=== PATIENT | male | born 1985 | race African-American/Black ===

== ENCOUNTER 2017-01-13 01:26 | Inpatient (IN) | payer SELFPAY ==
[2017-01-13] VITALS (10 sets, daily range): BP systolic 99–134; BP diastolic 45–70
[~2017-01-13] VITALS: Ht 180.3 cm; Wt 68.9 kg
[2017-01-13] MEDS ORDERED: ONDANSETRON PF 4 MG/2 ML VIAL. IV PRN ×3 (04:15→11:30)
[2017-01-13] MEDS: HYDROmorphone 2 MG/ML VIAL IVP PRN ×4 (04:23→17:37)
[2017-01-13] MEDS: IV NORMAL SALINE 1000ML BAG 1,000 ML IV SCH ×3 (04:24→20:15)
[2017-01-13] MEDS ORDERED: ACETAMINOPHEN 500 MG TABLET PO PRN (07:45)
--- NOTE | 2017-01-13 08:15 | PDOC2 ---
RONN TURNER ASPHALT LAYER 01/13/17 0815: CONSULT Date of Consult Date of Consult DATE: 01/13/17 TIME: 08:10 Reason for Consult Reason for Consult: appendicitis Referring Physician Referring Physician: CHELLY NARANJO Identification/Chief Complaint Chief Complaint abdominal pain Problems: Source Source: Chart review, Patient History of Present Illness Reason for Visit: 4 day history of RLQ pain. Aggravated by movement, no alleviating factors. Low appetite last few days. Pain is constant, sharp. Never had similar symptoms. + constipation. + n/v Past Medical History Past Medical History denies any pertinent history Past Surgical History Past Surgical History: No pertinent history Family History Family History: Other (noncontributory to current illness ) Social History <1 pack per day ALCOHOL: occassional Drugs: Marijuana Lives: Alone Current Medications Current Medications Current Medications Hydromorphone HCl (Dilaudid) 1 mg PRN Q2HR PRN IVP SEVERE PAIN Last administered on 01/13/17 04:23; Start 01/13/17 at 04:15 Morphine Sulfate 2 mg PRN Q2HR PRN IV MODERATE PAIN; Start 01/13/17 at 04:15 Ondansetron HCl (Zofran) 4 mg PRN Q6HRS PRN IV NAUSEA/VOMITING Last administered on 01/13/17 04:23; Start 01/13/17 at 04:15 Sodium Chloride 1,000 ml @ 125 mls/hr Q8H IV Last administered on 01/13/17 04: 24; Start 01/13/17 at 04:15 Acetaminophen (Tylenol) 500 mg PRN Q6HRS PRN PO MILD PAIN / TEMP; Start at 07:45 Active Scripts Active No Active Prescriptions or Reported Medications Allergies Allergies: Coded Allergies: No Known Drug Allergies (Unverified , 01/13/17) ROS General: YES: Chills, No: Other (fevers) PSYCHOLOGICAL ROS: No: Anxiety, Depression Eyes: No Double vision HEENT: No: Heacaches, Sore Throat Hematological and Lymphatic: No: Bleeding Problems, Blood Clots Respiratory: No: Cough, Shortness of breath Cardiovascular: No Chest Pain, No Palpitations Gastrointestinal: Yes Other (see hpi) Genitourinary: No Dysuria, No Hematuria Musculoskeletal: No Joint Pain, No Muscle Pain Neurological: No Impaired Coord/balance, No Numbness/Tingling Skin: No Pruritus, No Rash Physical Exam General: Alert, Oriented X3, Cooperative, Other (appears acutely uncomfortable ) HEENT: Atraumatic, PERRLA Lungs: Clear to auscultation, Normal air movement Heart: Regular rate, Normal S1, Normal S2, No murmurs Abdomen: Soft, Other (moderate RLQ TTP with guarding ) Extremities: No clubbing, No cyanosis Skin: No rashes, No breakdown Neuro: Normal gait, Normal speech Psych/Mental Status: Mental status NL, Mood NL MUSCULOSKELETAL: No deformity, No swelling Vitals VITALS Vital Signs Date Time Temp Pulse Resp B/P (MAP) Pulse Ox O2 Delivery O2 Flow Rate FiO2 01/13/17 07:00 98.1 51 20 116/63 (80) 99 Room Air 98.[address] report from [facility] Assessment/Plan Assessment/Plan acute appendicitis, peritoneal findings on exam tobaccoism, drug use(marijuana use) plan lap appy today MANDI BOONE MD 01/13/17 0922: CONSULT Allergies Allergies: Coded Allergies: No Known Drug Allergies (Unverified , 01/13/17) Assessment/Plan Assessment/Plan pt seen, interviewed, and examined agree with above Explained risks of l/s appendectomy including but not limited to bleeding, infection, injury to bowel, bladder or the possibility of needing an "open" procedure. Also the chance this is NOT an acute appendicitis (i.e mesenteric adenitis, gastroenteritis). He will proceed. Will follow with you. Thanks for consult RONN TURNER APRN Jan 13, 2017 08:15 MANDI BOONE MD Jan 13, 2017 09:22
[2017-01-13] MEDS ORDERED: DESFLURANE 61 TO 120 MINUTES IH ONE (09:09)
[2017-01-13] MEDS ORDERED: DEXAMETHASONE SOD PHOS 20 MG/5 ML VIAL. ONE (09:09)
[2017-01-13] MEDS ORDERED: PROPOFOL 20 ML IV ONE (09:09)
[2017-01-13] MEDS ORDERED: MIDAZOLAM HCL/PF 2 MG/2 ML VIAL. ONE (09:09)
[2017-01-13] MEDS ORDERED: ONDANSETRON PF 4 MG/2 ML VIAL. ONE (09:09)
[2017-01-13] MEDS ORDERED: LIDOCAINE 2% PF Vial for OR 5 ML VIAL. ONE (09:09)
[2017-01-13] MEDS ORDERED: ROCURONIUM 50 MG/5 ML VIAL. ONE (09:10)
[2017-01-13] MEDS ORDERED: fentaNYL PF VIAL 100 MCG/2 ML VIAL ONE ×2 (09:10→10:51)
[2017-01-13] MEDS ORDERED: BUPIVACAINE-EPI 0.5%-1:200000 50 ML VIAL. ONE (09:49)
[2017-01-13] MEDS ORDERED: PIPERACILLIN/TAZOBACTAM 3.375 GM in IV NORMAL SALINE 50ML 50 ML IV ONE (10:00)
--- NOTE | 2017-01-13 10:11 | PDOC1 ---
History and Physical Date of Admission Date of Admission DATE: 01/13/17 TIME: 10:06 Identification/Chief Complaint Chief Complaint ABdominal pain Problems: Source Source: Caregiver, Chart review History of Present Illness History of Present Illness Pt out having appy\ CHart reveiwed, per note: 4 day history of RLQ pain. Aggravated by movement, no alleviating factors. Low appetite last few days. Pain is constant, sharp. Never had similar symptoms. + constipation. + n/v Past Medical History Cardiovascular: No pertinent hx Pulmonary: No pertinent hx GI: No pertinent hx Heme/Onc: No pertinent hx Hepatobiliary: No pertinent hx Psych: No pertinent hx Rheumatologic: No pertinent hx Infectious disease: No pertinent hx ENT: No pertinent hx Renal/: No pertinent hx Endocrine: No pertinent hx Dermatology: No pertinent hx Past Surgical History Past Surgical History: No pertinent history Family History Family History: Other (noncontributory to current illness ) Social History Smoke: No ALCOHOL: none Drugs: Marijuana Current Medications Current Medications Current Medications Hydromorphone HCl (Dilaudid) 1 mg PRN Q2HR PRN IVP SEVERE PAIN Last administered on 01/13/17 08:15; Start 01/13/17 at 04:15 Morphine Sulfate 2 mg PRN Q2HR PRN IV MODERATE PAIN; Start 01/13/17 at 04:15 Ondansetron HCl (Zofran) 4 mg PRN Q6HRS PRN IV NAUSEA/VOMITING Last administered on 01/13/17 04:23; Start 01/13/17 at 04:15 Sodium Chloride 1,000 ml @ 125 mls/hr Q8H IV Last administered on 01/13/17 04: 24; Start 01/13/17 at 04:15 Acetaminophen (Tylenol) 500 mg PRN Q6HRS PRN PO MILD PAIN / TEMP; Start at 07:45 Dexamethasone Sodium Phosphate (Decadron) 20 mg STK-MED ONCE .ROUTE ; Start 01/13 at 09:09; Stop 01/13/17 at 09:10; Status DC Ondansetron HCl (Zofran) 4 mg STK-MED ONCE .ROUTE ; Start 01/13/17 at 09:09; Stop 01/13/17 at 09:10; Status DC Propofol 20 ml @ As Directed STK-MED ONCE IV ; Start 01/13/17 at 09:09; Stop 01/13 at 09:10; Status DC Lidocaine HCl (Lidocaine Pf 2% Vial) 5 ml STK-MED ONCE .ROUTE ; Start 01/13/17 at 09:09; Stop 01/13/17 at 09:10; Status DC Desflurane (Suprane) 60 ml STK-MED ONCE IH ; Start 01/13/17 at 09:09; Stop at 09:10; Status DC Midazolam HCl (Versed) 2 mg STK-MED ONCE .ROUTE ; Start 01/13/17 at 09:09; Stop 01/13/17 at 09:10; Status DC Fentanyl Citrate (Fentanyl 2ml Vial) 100 mcg STK-MED ONCE .ROUTE ; Start at 09:10; Stop 01/13/17 at 09:11; Status DC Rocuronium [place] (Zemuron) 50 mg STK-MED ONCE .ROUTE ; Start 01/13/17 at 09:10 ; Stop 01/13/17 at 09:11; Status DC Piperacillin Sod/ Tazobactam Sod 3.375 gm/Sodium Chloride 50 ml @ 100 mls/hr 1X ONCE IV ; Start 01/13/17 at 10:00; Stop 01/13/17 at 10:29 Bupivacaine HCl/ Epinephrine Bitart (Marcaine-Epi 0.5%-[id number]) 50 ml STK-MED ONCE .ROUTE Last administered on 01/13/17t 09:53; Start 01/13/17 at 09:49; Stop 01/13/17 at 09:50; Status DC Active Scripts Active No Active Prescriptions or Reported Medications Allergies Allergies: Coded Allergies: No Known Drug Allergies (Unverified , 01/13/17) ROS Review of System out having sx Vitals Vitals Vital Signs Date Time Temp Pulse Resp B/P (MAP) Pulse Ox O2 Delivery O2 Flow Rate FiO2 01/13/17 09:09 98.1 52 18 119/66 98 Room Air 98.1 VTE Prophylaxis Ordered VTE Prophylaxis Devices: Yes VTE Pharmacological Prophylaxi: Yes Assessment/Plan Assessment/Plan 1. Acute appy 2. marijuana use PLAN; will see pt later when gets back from OR SHERRY BELTRAN MD Jan 13, 2017 10:11
[2017-01-13] MEDS ORDERED: NEOSTIGMINE METHYLSULFATE 5 MG/5 ML SYRINGE. ONE (10:50)
[2017-01-13] MEDS ORDERED: GLYCOPYRROLATE 1 MG/5 ML VIAL. ONE (10:50)
[2017-01-13] MEDS ORDERED: SEVOFLURANE 61 TO 120 MINUTES. IH ONE (11:10)
[2017-01-13] MEDS ORDERED: diphenhydrAMINE 50 MG/ML VIAL IV PRN (11:15)
[2017-01-13] MEDS ORDERED: HYDROmorphone 2 MG/ML VIAL IV PRN ×2 (11:15→11:30)
[2017-01-13] MEDS ORDERED: diphenhydrAMINE HCL 25 MG CAPSULE PO PRN (11:15)
[2017-01-13] MEDS ORDERED: oxyCODONE/APAP 5/325 1 TAB TABLET PO PRN (11:15)
[2017-01-13] MEDS ORDERED: DEXTROSE 50% 25 GM / 50ML DISP.SYRIN. IV PRN (11:15)
[2017-01-13] MEDS ORDERED: 0.9 % SODIUM CHLORIDE 10 ML DISP.SYRIN. IV PRN (11:15)
--- NOTE | 2017-01-13 11:21 | PDOC ---
BRIEF OPERATIVE NOTE Date: Jan 13, 2017 Pre-Op Diagnosis acute appendicitis Post-Op Diagnosis same, with perforation Procedure Performed l/s appendectomy Surgeon Tyler Anesthesia Type: General Blood Loss 25cc IV Fluid 900cc Urine Output 210cc Specimens Obtained appendix Findings perforation at mid-appendix with localized abscess Complications none MANDI BOONE MD Jan 13, 2017 11:21
[2017-01-13] MEDS ORDERED: IV RINGERS,LACTATED 1000ML 1,000 ML IV SCH (11:26)
[2017-01-13] MEDS ORDERED: fentaNYL PF VIAL 100 MCG/2 ML VIAL IV PRN (11:30)
[2017-01-13] MEDS ORDERED: PROCHLORPERAZINE 10 MG/2 ML VIAL. IV PRN (11:30)
[2017-01-13] MEDS ORDERED: LIDOCAINE 1% 1 ML SYRINGE. ID PRN (11:30)
[2017-01-13] MEDS: fentaNYL PF VIAL 100 MCG/2 ML VIAL IV PRN ×2 (11:50→12:09)
[2017-01-13] MEDS: ENOXAPARIN 40 MG/0.4 ML SYRINGE. SQ SCH (12:00)
[2017-01-13] MEDS: MORPHINE SULFATE 2 MG/ML DISP.SYRIN. IV PRN ×3 (12:15→23:25)
[2017-01-13] MEDS: POTASSIUM CL 20MEQ-0.45% NACL 1,000 ML IV SCH ×2 (13:45→21:15)
--- NOTE | 2017-01-13 15:25 | ACF ---
Admission Forms Criteria ABDOMINAL PAIN Clinical Indications for Admission to Inpatient Care (Place 'X' for any and all applicable criteria): Admission is indicated for ANY ONE of the following(1)(2)(3)(4)(5): [X ]I. Inpatient admission required rather than observation care (Also use Abdominal Pain: Observation Care, as appropriate) because of ANY ONE of the following: [ ]a) Severe pain requiring acute inpatient management [X ]b) Identification of etiology/finding that requires inpatient care (eg, aortic dissection, free air) [ ]c) Absent bowel sounds with complete ileus(6) [ ]d) Suspected toxic megacolon [ ]e) Severe electrolyte abnormalities requiring inpatient care [ ]f) High fever or infection requiring inpatient admission as indicated by ANY ONE of following(7)(8): [ ] i) Appropriate outpatient or observational care antimicrobial treatment unavailable, not effective, or not feasible [ ] ii) Documented bacteremia [ ] iii) Temperature > 104.9 degrees F (oral) [ ] iv) T >103.1 F (oral) or < 96.8 F(rectal) that does not respond to all emergency treatment measures [ ]g) Signs of intestinal obstruction [B] [ ]h) Hemodynamic instability [ ]i) IV fluid to replace significant ongoing losses (greater than 3 L/m2 per day) (12)(13) [ ]j) Percutaneous or open drainage (eg, abscess, biliary tract ) procedures [ ]k) Parenteral nutrition regimen that must be implemented on inpatient basis [ ]l) Other condition,treatment or monitoring requiring inpatient admission. [ ]II. Peritoneal signs present [X ]III. Surgery needed that cannot be performed on an ambulatory basis. [ ]IV. Evaluation requires patient to not eat or drink for extended period ( eg, more than 24 hours). [ ]V. Contraindications and/or Inappropriate clinical situations for Observational Care in patients with abdominal pain, when ANY ONE of the following is required: [ ]a) Thorough evaluation is required to prevent catastrophic events due to delays in diagnosing (e.g.Mesenteric ischemia) 1,3 [ ]b) Patient with severe pathology or with chronic symptoms unlikely to improve in the ED stay (3) [ ]. General contraindications and/or Inappropriate clinical situations for Observational Care in patients with abdominal pain, when ANY ONE of the following is required: [ ]a) Prediction of prolongation of LOS based on ANY ONE of the following may be considered as a contraindication for observational care 2, 3, 4, 5, 6, 7, 8, 9, 10, 11 [ ]i) Age > 65 yrs. [ ]ii) Patient arriving by ambulance [ ]iii) Patient with high acuity [ ]iv) Patient requiring vital sign monitoring [ ]v) Patient on IV medication [ ]b) Systolic blood pressures 180mmHg 3,12 [ ]c) Patient with altered mental status including delirium and other alteration of consciousness, (3) [ ]d) Patient whose discharge disposition will be to a nursing home home or rehabilitation home should not be managed in Emergency Department Observation Unit. CMS rule requires 3 days hospital stay before such placement.3,13 [ ]e) Patient with failure to thrive due to broad array of etiologies 3,16,17 [ ]f) Inability to ambulate 3,14 Extended stay beyond goal length of stay may be needed for(2)(3): [ ]a) Persistent abdominal pain with suspected intra-abdominal process [ ]b) Diagnosed condition requiring continued stay (e.g., pancreatitis, complicated diverticulitis) [ ]c) Surgery (e.g., colectomy) The original [email or web address] content created by [employer] has been revised. The portions of the content which have been revised are identified through the use of italic text or in bold, and [facility] has neither reviewed nor approved the modified material.All other unmodified content is copyright [employer] [email or web address]. Please see references footnoted in the original [email or web address] edition 2016 Admission Criteria Met?: Yes SAURABH KRAUSE Jan 13, 2017 15:25
[2017-01-13] MEDS: oxyCODONE/APAP 5/325 1 TAB TABLET PO PRN (20:09)
[2017-01-14] MEDS: oxyCODONE/APAP 5/325 1 TAB TABLET PO PRN ×4 (00:35→14:18)
[2017-01-14 02:55] VITALS: BP 106/64
[2017-01-14] MEDS: IV NORMAL SALINE 1000ML BAG 1,000 ML IV SCH (04:15)
[2017-01-14 07:00] VITALS: BP 113/57
[2017-01-14] MEDS: MORPHINE SULFATE 2 MG/ML DISP.SYRIN. IV PRN ×2 (08:26→12:19)
[2017-01-14 09:37] LABS: BASO % 0 % (0-3); EOS % 0 % (0-3); HEMATOCRIT 40.7 % (39.0-53.0); HEMOGLOBIN 13.5 g/dL (13.0-17.5); LYMPH # 1.4 x10^3/uL (1.0-4.8); LYMPH % 9 % (24-48); MEAN CORPUSCULAR HEMOGLOBIN 32 pg (25-35); MEAN CORPUSCULAR HGB CONC 33 g/dL (31-37); MEAN CORPUSCULAR VOLUME 96 fL (79-100); MONO % 5 % (0-9); NEUT % 85 % (31-73); PLATELET COUNT 203 x10^3/uL (140-400); RED BLOOD COUNT 4.24 x10^6/uL (4.30-5.70); RED CELL DISTRIBUTION WIDTH 13.8 % (11.5-14.5); WHITE BLOOD COUNT 14.9 x10^3/uL (4.0-11.0)
[2017-01-14 09:58] LABS: CALCIUM 8.6 mg/dL (8.5-10.1); CREATININE 0.9 mg/dL (0.7-1.3); GFR 119.9; POTASSIUM 3.7 mmol/L (3.5-5.1)
[2017-01-14 10:37] LABS: PLT ESTIMATE ADEQUATE (ADEQUATE)
[2017-01-14 11:00] VITALS: BP 119/70
--- NOTE | 2017-01-14 11:27 | PDOC ---
PROGRESS NOTES Chief Complaint Chief Complaint 1. Ruptured appendictis s./p appY (7.6) POD # 1 2. SIRS POA , no sepsis sec to above History of Present Illness History of Present Illness Still pain , diff kind of pain RAtes 7./10 Lap sites inspected, dressing dry Ate reg diet though this breakfast NO fevers \ RPt WBC post op is 14 NOt getting up around bec of pain PLAN: ON IV fenatnyl, dilaudid and pO pain meds DOwngrade to GI soft for now COnt IV antibiotic Recheck CBC [place] IS Order pOT/OT so he is forced to get up Vitals Vitals Vital Signs Date Time Temp Pulse Resp B/P (MAP) Pulse Ox O2 Delivery O2 Flow Rate FiO2 01/14/17 11:18 Room Air 01/14/17 07:00 98.1 73 18 113/57 (75) 94 98.1 01/13/17 12:15 10.0 Physical Exam General: Alert, Oriented X3, Cooperative, Other (appears acutely uncomfortable ) Heart: Regular rate, Normal S1, Normal S2, No murmurs Abdomen: Soft, Other (moderate RLQ TTP with guarding ) Extremities: No clubbing, No cyanosis Skin: No rashes, No breakdown Labs LABS Laboratory Tests Test 01/14/17 09:25 White Blood Count 14.9 x10^3/uL (4.0-11.0) Red Blood Count 4.24 x10^6/uL (4.30-5.70) Hemoglobin 13.5 g/dL (13.0-17.5) Hematocrit 40.7 % (39.0-53.0) Mean Corpuscular Volume 96 fL (79-100) Mean Corpuscular Hemoglobin 32 pg (25-35) Mean Corpuscular Hemoglobin Concent 33 g/dL (31-37) Red Cell Distribution Width 13.8 % (11.5-14.5) Platelet Count 203 x10^3/uL (140-400) Neutrophils (%) (Auto) 85 % (31-73) Lymphocytes (%) (Auto) 9 % (24-48) Monocytes (%) (Auto) 5 % (0-9) Eosinophils (%) (Auto) 0 % (0-3) Basophils (%) (Auto) 0 % (0-3) Neutrophils # (Auto) 12.6 x10^3uL (1.8-7.7) Lymphocytes # (Auto) 1.4 x10^3/uL (1.0-4.8) Monocytes # (Auto) 0.8 x10^3/uL (0.0-1.1) Eosinophils # (Auto) 0.0 x10^3/uL (0.0-0.7) Basophils # (Auto) 0.0 x10^3/uL (0.0-0.2) Segmented Neutrophils % 82 % (35-66) Band Neutrophils % 1 % (0-9) Lymphocytes % 11 % (24-48) Monocytes % 6 % (0-10) Platelet Estimate Adequate (ADEQUATE) Sodium Level 142 mmol/L (136-145) Potassium Level 3.7 mmol/L (3.5-5.1) Chloride Level 104 mmol/L (98-107) Carbon Dioxide Level 30 mmol/L (21-32) Anion Gap 8 (6-14) Blood Urea Nitrogen 9 mg/dL (8-26) Creatinine 0.9 mg/dL (0.7-1.3) Estimated GFR (Cockcroft-Gault) 119.9 Glucose Level 107 mg/dL (70-99) Calcium Level 8.6 mg/dL (8.5-10.1) Review of Systems Review of Systems pain, weak, nauseated but no emesis Comment Review of Relevant I have reviewed the following items cy (where applicable) has been applied. Labs Laboratory Tests Test 01/14/17 09:25 White Blood Count 14.9 x10^3/uL (4.0-11.0) Red Blood Count 4.24 x10^6/uL (4.30-5.70) Hemoglobin 13.5 g/dL (13.0-17.5) Hematocrit 40.7 % (39.0-53.0) Mean Corpuscular Volume 96 fL (79-100) Mean Corpuscular Hemoglobin 32 pg (25-35) Mean Corpuscular Hemoglobin Concent 33 g/dL (31-37) Red Cell Distribution Width 13.8 % (11.5-14.5) Platelet Count 203 x10^3/uL (140-400) Neutrophils (%) (Auto) 85 % (31-73) Lymphocytes (%) (Auto) 9 % (24-48) Monocytes (%) (Auto) 5 % (0-9) Eosinophils (%) (Auto) 0 % (0-3) Basophils (%) (Auto) 0 % (0-3) Neutrophils # (Auto) 12.6 x10^3uL (1.8-7.7) Lymphocytes # (Auto) 1.4 x10^3/uL (1.0-4.8) Monocytes # (Auto) 0.8 x10^3/uL (0.0-1.1) Eosinophils # (Auto) 0.0 x10^3/uL (0.0-0.7) Basophils # (Auto) 0.0 x10^3/uL (0.0-0.2) Segmented Neutrophils % 82 % (35-66) Band Neutrophils % 1 % (0-9) Lymphocytes % 11 % (24-48) Monocytes % 6 % (0-10) Platelet Estimate Adequate (ADEQUATE) Sodium Level 142 mmol/L (136-145) Potassium Level 3.7 mmol/L (3.5-5.1) Chloride Level 104 mmol/L (98-107) Carbon Dioxide Level 30 mmol/L (21-32) Anion Gap 8 (6-14) Blood Urea Nitrogen 9 mg/dL (8-26) Creatinine 0.9 mg/dL (0.7-1.3) Estimated GFR (Cockcroft-Gault) 119.9 Glucose Level 107 mg/dL (70-99) Calcium Level 8.6 mg/dL (8.5-10.1) Laboratory Tests Test 01/14/17 09:25 White Blood Count 14.9 x10^3/uL (4.0-11.0) Red Blood Count 4.24 x10^6/uL (4.30-5.70) Hemoglobin 13.5 g/dL (13.0-17.5) Hematocrit 40.7 % (39.0-53.0) Mean Corpuscular Volume 96 fL (79-100) Mean Corpuscular Hemoglobin 32 pg (25-35) Mean Corpuscular Hemoglobin Concent 33 g/dL (31-37) Red Cell Distribution Width 13.8 % (11.5-14.5) Platelet Count 203 x10^3/uL (140-400) Neutrophils (%) (Auto) 85 % (31-73) Lymphocytes (%) (Auto) 9 % (24-48) Monocytes (%) (Auto) 5 % (0-9) Eosinophils (%) (Auto) 0 % (0-3) Basophils (%) (Auto) 0 % (0-3) Neutrophils # (Auto) 12.6 x10^3uL (1.8-7.7) Lymphocytes # (Auto) 1.4 x10^3/uL (1.0-4.8) Monocytes # (Auto) 0.8 x10^3/uL (0.0-1.1) Eosinophils # (Auto) 0.0 x10^3/uL (0.0-0.7) Basophils # (Auto) 0.0 x10^3/uL (0.0-0.2) Segmented Neutrophils % 82 % (35-66) Band Neutrophils % 1 % (0-9) Lymphocytes % 11 % (24-48) Monocytes % 6 % (0-10) Platelet Estimate Adequate (ADEQUATE) Sodium Level 142 mmol/L (136-145) Potassium Level 3.7 mmol/L (3.5-5.1) Chloride Level 104 mmol/L (98-107) Carbon Dioxide Level 30 mmol/L (21-32) Anion Gap 8 (6-14) Blood Urea Nitrogen 9 mg/dL (8-26) Creatinine 0.9 mg/dL (0.7-1.3) Estimated GFR (Cockcroft-Gault) 119.9 Glucose Level 107 mg/dL (70-99) Calcium Level 8.6 mg/dL (8.5-10.1) Medications Current Medications Hydromorphone HCl (Dilaudid) 1 mg PRN Q2HR PRN IVP SEVERE PAIN Last administered on 01/13/17 17:37; Start 01/13/17 at 04:15 Morphine Sulfate 2 mg PRN Q2HR PRN IV MODERATE PAIN Last administered on 08:26; Start 01/13/17 at 04:15 Ondansetron HCl (Zofran) 4 mg PRN Q6HRS PRN IV NAUSEA/VOMITING Last administered on 01/13/17 04:23; Start 01/13/17 at 04:15; Stop 01/13/17 at 12:15; Status DC Sodium Chloride 1,000 ml @ 125 mls/hr Q8H IV Last administered on 01/13/17 04: 24; Start 01/13/17 at 04:15; Stop 01/14/17 at 05:41; Status DC Acetaminophen (Tylenol) 500 mg PRN Q6HRS PRN PO MILD PAIN / TEMP; Start at 07:45 Dexamethasone Sodium Phosphate (Decadron) 20 mg STK-MED ONCE .ROUTE ; Start 01/13 at 09:09; Stop 01/13/17 at 09:10; Status DC Ondansetron HCl (Zofran) 4 mg STK-MED ONCE .ROUTE ; Start 01/13/17 at 09:09; Stop 01/13/17 at 09:10; Status DC Propofol 20 ml @ As Directed STK-MED ONCE IV ; Start 01/13/17 at 09:09; Stop 01/13 at 09:10; Status DC Lidocaine HCl (Lidocaine Pf 2% Vial) 5 ml STK-MED ONCE .ROUTE ; Start 01/13/17 at 09:09; Stop 01/13/17 at 09:10; Status DC Desflurane (Suprane) 60 ml STK-MED ONCE IH ; Start 01/13/17 at 09:09; Stop at 09:10; Status DC Midazolam HCl (Versed) 2 mg STK-MED ONCE .ROUTE ; Start 01/13/17 at 09:09; Stop 01/13/17 at 09:10; Status DC Fentanyl Citrate (Fentanyl 2ml Vial) 100 mcg STK-MED ONCE .ROUTE ; Start at 09:10; Stop 01/13/17 at 09:11; Status DC Rocuronium [place] (Zemuron) 50 mg STK-MED ONCE .ROUTE ; Start 01/13/17 at 09:10 ; Stop 01/13/17 at 09:11; Status DC Piperacillin Sod/ Tazobactam Sod 3.375 gm/Sodium Chloride 50 ml @ 100 mls/hr 1X ONCE IV Last administered on 01/13/17 10:23; Start 01/13/17 at 10:00; Stop 01/13/17 at 10:29; Status DC Bupivacaine HCl/ Epinephrine Bitart (Marcaine-Epi 0.5%-1:[id number]) 50 ml STK-MED ONCE .ROUTE Last administered on 01/13/17 09:53; Start 01/13/17 at 09:49; Stop 01/13/17 at 09:50; Status DC Glycopyrrolate (Robinul) 1 mg STK-MED ONCE .ROUTE ; Start 01/13/17 at 10:50; Stop 01/13/17 at 10:51; Status DC Neostigmine Methylsulfate 5 mg STK-MED ONCE .ROUTE ; Start 01/13/17 at 10:50; Stop 01/13/17 at 10:51; Status DC Fentanyl Citrate (Fentanyl 2ml Vial) 100 mcg STK-MED ONCE .ROUTE ; Start at 10:51; Stop 01/13/17 at 10:52; Status DC Sevoflurane (Ultane) 60 ml STK-MED ONCE IH ; Start 01/13/17 at 11:10; Stop at 11:11; Status DC Diphenhydramine HCl (Benadryl) 25 mg PRN Q6HRS PRN PO ITCHING; Start 01/13/17 at 11:15 Diphenhydramine HCl (Benadryl) 25 mg PRN Q6HRS PRN IV ITCHING; Start 01/13/17 at 11:15 Enoxaparin Sodium (Lovenox 40mg Syringe) 40 mg Q24H SQ ; Start 01/13/17 at 12:00 Sodium Chloride (Normal Saline Flush) 3 ml QSHIFT PRN IV AFTER MEDS AND BLOOD DRAWS; Start 01/13/17 at 11:15 Potassium Chloride/Sodium Chloride 1,000 ml @ 100 mls/hr Q10H IV Last administered on 01/13/17 13:45; Start 01/13/17 at 11:15; Stop 01/14/17 at 05:41; Status DC Dextrose (Dextrose 50%-Water Syringe) 12.5 gm PRN Q15MIN PRN IV SEE COMMENTS; Start 01/13/17 at 11:15 Oxycodone/ Acetaminophen (Percocet 5/325) 1 tab PRN Q4HRS PRN PO MILD PAIN, 1ST CHOICE; Start 01/13/17 at 11:15 Oxycodone/ Acetaminophen (Percocet 5/325) 2 tab PRN Q4HRS PRN PO MODERATE PAIN , SEVERE PAIN Last administered on 01/14/17 10:08; Start 01/13/17 at 11:15 Hydromorphone HCl (Dilaudid) 1 mg PRN Q3HRS PRN IV PAIN; Start 01/13/17 at 11:15 ; Stop 01/13/17 at 12:14; Status DC Ondansetron HCl (Zofran) 4 mg PRN Q6HRS PRN IV NAUESA, 1ST CHOICE; Start at 11:15 Cefoxitin Sodium 1 gm/Sodium Chloride 50 ml @ 100 mls/hr Q8HRS IV Last administered on 01/14/17 06:01; Start 01/13/17 at 12:00 Ondansetron HCl (Zofran) 4 mg PRN Q6HRS PRN IV NAUSEA/VOMITING; Start 01/13/17 at 11:30; Stop 01/14/17 at 11:29 Fentanyl Citrate (Fentanyl 2ml Vial) 25 mcg PRN Q5MIN PRN IV MILD PAIN; Start 01/13/17 at 11:30; Stop 01/14/17 at 11:29 Fentanyl Citrate (Fentanyl 2ml Vial) 50 mcg PRN Q5MIN PRN IV MODERATE PAIN Last administered on 01/13/17 12:09; Start 01/13/17 at 11:30; Stop 01/14/17 at 11: 29 Morphine Sulfate 1 mg PRN Q10MIN PRN IV SEVERE PAIN Last administered on 12:44; Start 01/13/17 at 11:30; Stop 01/14/17 at 11:29 Ringer's Solution 1,000 ml @ 30 mls/hr Q24H IV Last administered on 01/13/17 12:17; Start 01/13/17 at 11:26; Stop 01/13/17 at 23:25; Status DC Lidocaine HCl 2 ml PRN 1X PRN ID PRIOR TO IV START; Start 01/13/17 at 11:30; Stop 01/14/17 at 11:29 Hydromorphone HCl (Dilaudid) 0.5 mg PRN Q10MIN PRN IV SEV PAIN, Second choice; Start 01/13/17 at 11:30; Stop 01/14/17 at 11:29 Prochlorperazine Edisylate (Compazine) 5 mg PACU PRN PRN IV NAUSEA, MRX1 Last administered on 01/13/17t 11:47; Start 01/13/17 at 11:30; Stop 01/14/17 at 11:29 Cefoxitin Sodium 50 ml @ As Directed STK-MED ONCE IV ; Start 01/13/17 at 12:12; Stop 01/13/17 at 12:13; Status DC Active Scripts Active No Active Prescriptions or Reported Medications Vitals/I & O Vital Sign - Last 24 Hours 01/13/17 01/13/17 01/13/17 01/13/17 11:35 11:35 11:50 11:50 Temp 98.3 98.3 Pulse 64 52 Resp 22 20 20 B/P (MAP) 116/70 117/72 Pulse Ox 100 99 98 O2 Delivery Mask Simple Mask Simple Mask Simple Mask O2 Flow Rate 10 10 10 01/13/17 01/13/17 01/13/17 01/13/17 12:05 12:09 12:15 12:25 Pulse 52 56 Resp 20 20 20 20 B/P (MAP) 117/52 117/61 Pulse Ox 100 98 98 97 O2 Delivery Simple Mask Simple Mask Room Air O2 Flow Rate 10 10.0 01/13/17 01/13/17 01/13/17 01/13/17 12:27 12:40 12:44 12:55 Pulse 55 58 Resp 20 20 20 B/P (MAP) 115/61 115/61 Pulse Ox 92 99 95 O2 Delivery Room Air Room Air Room Air Room Air 01/13/17 01/13/17 01/13/17 01/13/17 13:00 13:14 13:30 13:45 Temp 97.5 97.9 97.5 97.9 Pulse 51 48 54 Resp 20 16 20 20 B/P (MAP) 115/68 (84) 119/67 (84) 122/64 (83) Pulse Ox 97 94 92 O2 Delivery Room Air Room Air Room Air Room Air 01/13/17 01/13/17 01/13/17 01/13/17 14:11 15:39 16:00 17:00 Temp 97.7 97.9 97.7 97.7 97.9 97.7 Pulse 59 53 53 Resp 16 20 20 20 B/P (MAP) 132/51 (78) 134/70 (91) 123/61 (81) Pulse Ox 90 93 93 O2 Delivery Room Air Room Air Room Air Room Air 01/13/17 01/13/17 01/13/17 01/13/17 17:37 18:07 19:20 20:09 Temp 97.5 97.5 Pulse 56 Resp 16 16 16 20 B/P (MAP) 119/64 (82) Pulse Ox 100 100 O2 Delivery Room Air Room Air Room Air Room Air 01/13/17 01/13/17 01/13/17 01/14/17 20:09 23:09 23:25 00:35 Temp 98.1 98.1 Pulse 62 Resp 16 18 18 B/P (MAP) 99/45 (63) Pulse Ox 97 97 97 O2 Delivery Room Air Room Air Room Air Room Air 01/14/17 01/14/17 01/14/17 01/14/17 01:38 02:55 06:01 07:00 Temp 97.9 98.1 97.9 98.1 Pulse 45 73 Resp 16 16 18 18 B/P (MAP) 106/64 (78) 113/57 (75) Pulse Ox 94 94 94 O2 Delivery Room Air Room Air Room Air 01/14/17 01/14/17 01/14/17 01/14/17 08:00 08:26 10:08 10:09 O2 Delivery Room Air Room Air Room Air Room Air 01/14/17 11:18 O2 Delivery Room Air Intake and Output 01/13/17 01/13/17 01/14/17 14:59 22:59 06:59 Intake Total 1425 ml 50 ml 2449 ml Output Total 265 ml 30 ml Balance 1160 ml 20 ml 2449 ml SHERRY BELTRAN MD Jan 14, 2017 11:27
[2017-01-14] MEDS: ENOXAPARIN 40 MG/0.4 ML SYRINGE. SQ SCH (12:16)
--- NOTE | 2017-01-14 14:28 | PDOC ---
SURGICAL PROGRESS NOTE Subjective tolerating po adequate pain control Vital Signs Vital Signs Date Time Temp Pulse Resp B/P (MAP) Pulse Ox O2 Delivery O2 Flow Rate FiO2 01/14/17 14:19 Room Air 01/14/17 11:00 97.3 53 18 119/70 (86) 95 97.3 01/13/17 12:15 10.0 I&O Intake and Output 01/14/17 07:00 Intake Total 3924 ml Output Total 295 ml Balance 3629 ml Intake Oral 1025 ml IV Total 2899 ml Output Urine Total 210 ml Drainage Total 80 ml Estimated Blood Loss 5 ml # Voids 8 PATIENT HAS A WOLF: No General: Alert, Oriented X3, Cooperative, No acute distress Abdomen: Soft, Other (JULIANE with serosanguineous output) Labs Laboratory Tests Test 01/14/17 09:25 White Blood Count 14.9 x10^3/uL (4.0-11.0) Red Blood Count 4.24 x10^6/uL (4.30-5.70) Hemoglobin 13.5 g/dL (13.0-17.5) Hematocrit 40.7 % (39.0-53.0) Mean Corpuscular Volume 96 fL (79-100) Mean Corpuscular Hemoglobin 32 pg (25-35) Mean Corpuscular Hemoglobin Concent 33 g/dL (31-37) Red Cell Distribution Width 13.8 % (11.5-14.5) Platelet Count 203 x10^3/uL (140-400) Neutrophils (%) (Auto) 85 % (31-73) Lymphocytes (%) (Auto) 9 % (24-48) Monocytes (%) (Auto) 5 % (0-9) Eosinophils (%) (Auto) 0 % (0-3) Basophils (%) (Auto) 0 % (0-3) Neutrophils # (Auto) 12.6 x10^3uL (1.8-7.7) Lymphocytes # (Auto) 1.4 x10^3/uL (1.0-4.8) Monocytes # (Auto) 0.8 x10^3/uL (0.0-1.1) Eosinophils # (Auto) 0.0 x10^3/uL (0.0-0.7) Basophils # (Auto) 0.0 x10^3/uL (0.0-0.2) Segmented Neutrophils % 82 % (35-66) Band Neutrophils % 1 % (0-9) Lymphocytes % 11 % (24-48) Monocytes % 6 % (0-10) Platelet Estimate Adequate (ADEQUATE) Sodium Level 142 mmol/L (136-145) Potassium Level 3.7 mmol/L (3.5-5.1) Chloride Level 104 mmol/L (98-107) Carbon Dioxide Level 30 mmol/L (21-32) Anion Gap 8 (6-14) Blood Urea Nitrogen 9 mg/dL (8-26) Creatinine 0.9 mg/dL (0.7-1.3) Estimated GFR (Cockcroft-Gault) 119.9 Glucose Level 107 mg/dL (70-99) Calcium Level 8.6 mg/dL (8.5-10.1) Laboratory Tests Test 01/14/17 09:25 White Blood Count 14.9 x10^3/uL (4.0-11.0) Red Blood Count 4.24 x10^6/uL (4.30-5.70) Hemoglobin 13.5 g/dL (13.0-17.5) Hematocrit 40.7 % (39.0-53.0) Mean Corpuscular Volume 96 fL (79-100) Mean Corpuscular Hemoglobin 32 pg (25-35) Mean Corpuscular Hemoglobin Concent 33 g/dL (31-37) Red Cell Distribution Width 13.8 % (11.5-14.5) Platelet Count 203 x10^3/uL (140-400) Neutrophils (%) (Auto) 85 % (31-73) Lymphocytes (%) (Auto) 9 % (24-48) Monocytes (%) (Auto) 5 % (0-9) Eosinophils (%) (Auto) 0 % (0-3) Basophils (%) (Auto) 0 % (0-3) Neutrophils # (Auto) 12.6 x10^3uL (1.8-7.7) Lymphocytes # (Auto) 1.4 x10^3/uL (1.0-4.8) Monocytes # (Auto) 0.8 x10^3/uL (0.0-1.1) Eosinophils # (Auto) 0.0 x10^3/uL (0.0-0.7) Basophils # (Auto) 0.0 x10^3/uL (0.0-0.2) Segmented Neutrophils % 82 % (35-66) Band Neutrophils % 1 % (0-9) Lymphocytes % 11 % (24-48) Monocytes % 6 % (0-10) Platelet Estimate Adequate (ADEQUATE) Sodium Level 142 mmol/L (136-145) Potassium Level 3.7 mmol/L (3.5-5.1) Chloride Level 104 mmol/L (98-107) Carbon Dioxide Level 30 mmol/L (21-32) Anion Gap 8 (6-14) Blood Urea Nitrogen 9 mg/dL (8-26) Creatinine 0.9 mg/dL (0.7-1.3) Estimated GFR (Cockcroft-Gault) 119.9 Glucose Level 107 mg/dL (70-99) Calcium Level 8.6 mg/dL (8.5-10.1) Assessment/Plan POD 1 perf appendicitis home on po abx with drain f/u Tuesday Problems: MANDI BOONE MD Jan 14, 2017 14:28
--- NOTE | 2017-01-14 14:44 | PDOC3 ---
Discharge Summary Visit Information Date of Admission: Jan 13, 2017 Date of Discharge: Jan 14, 2017 Admitting Diagnosis Comment: 1. Ruptured appendictis s./p appY (7.6) POD # 1 2. SIRS POA , no sepsis sec to above Brief Hospital Course Allergies Allergies Coded Allergies Type Severity Reaction Last Updated Verified No Known Drug Allergies 01/13/17 No Vital Signs Vital Signs Date Time Temp Pulse Resp B/P (MAP) Pulse Ox O2 Delivery O2 Flow Rate FiO2 01/14/17 14:19 Room Air 01/14/17 11:00 97.3 53 18 119/70 (86) 95 97.3 01/13/17 12:15 10.0 Lab Results Laboratory Tests Test 01/14/17 09:25 White Blood Count 14.9 x10^3/uL (4.0-11.0) Red Blood Count 4.24 x10^6/uL (4.30-5.70) Hemoglobin 13.5 g/dL (13.0-17.5) Hematocrit 40.7 % (39.0-53.0) Mean Corpuscular Volume 96 fL (79-100) Mean Corpuscular Hemoglobin 32 pg (25-35) Mean Corpuscular Hemoglobin Concent 33 g/dL (31-37) Red Cell Distribution Width 13.8 % (11.5-14.5) Platelet Count 203 x10^3/uL (140-400) Neutrophils (%) (Auto) 85 % (31-73) Lymphocytes (%) (Auto) 9 % (24-48) Monocytes (%) (Auto) 5 % (0-9) Eosinophils (%) (Auto) 0 % (0-3) Basophils (%) (Auto) 0 % (0-3) Neutrophils # (Auto) 12.6 x10^3uL (1.8-7.7) Lymphocytes # (Auto) 1.4 x10^3/uL (1.0-4.8) Monocytes # (Auto) 0.8 x10^3/uL (0.0-1.1) Eosinophils # (Auto) 0.0 x10^3/uL (0.0-0.7) Basophils # (Auto) 0.0 x10^3/uL (0.0-0.2) Segmented Neutrophils % 82 % (35-66) Band Neutrophils % 1 % (0-9) Lymphocytes % 11 % (24-48) Monocytes % 6 % (0-10) Platelet Estimate Adequate (ADEQUATE) Sodium Level 142 mmol/L (136-145) Potassium Level 3.7 mmol/L (3.5-5.1) Chloride Level 104 mmol/L (98-107) Carbon Dioxide Level 30 mmol/L (21-32) Anion Gap 8 (6-14) Blood Urea Nitrogen 9 mg/dL (8-26) Creatinine 0.9 mg/dL (0.7-1.3) Estimated GFR (Cockcroft-Gault) 119.9 Glucose Level 107 mg/dL (70-99) Calcium Level 8.6 mg/dL (8.5-10.1) Laboratory Tests Test 01/14/17 09:25 White Blood Count 14.9 x10^3/uL (4.0-11.0) Red Blood Count 4.24 x10^6/uL (4.30-5.70) Hemoglobin 13.5 g/dL (13.0-17.5) Hematocrit 40.7 % (39.0-53.0) Mean Corpuscular Volume 96 fL (79-100) Mean Corpuscular Hemoglobin 32 pg (25-35) Mean Corpuscular Hemoglobin Concent 33 g/dL (31-37) Red Cell Distribution Width 13.8 % (11.5-14.5) Platelet Count 203 x10^3/uL (140-400) Neutrophils (%) (Auto) 85 % (31-73) Lymphocytes (%) (Auto) 9 % (24-48) Monocytes (%) (Auto) 5 % (0-9) Eosinophils (%) (Auto) 0 % (0-3) Basophils (%) (Auto) 0 % (0-3) Neutrophils # (Auto) 12.6 x10^3uL (1.8-7.7) Lymphocytes # (Auto) 1.4 x10^3/uL (1.0-4.8) Monocytes # (Auto) 0.8 x10^3/uL (0.0-1.1) Eosinophils # (Auto) 0.0 x10^3/uL (0.0-0.7) Basophils # (Auto) 0.0 x10^3/uL (0.0-0.2) Segmented Neutrophils % 82 % (35-66) Band Neutrophils % 1 % (0-9) Lymphocytes % 11 % (24-48) Monocytes % 6 % (0-10) Platelet Estimate Adequate (ADEQUATE) Sodium Level 142 mmol/L (136-145) Potassium Level 3.7 mmol/L (3.5-5.1) Chloride Level 104 mmol/L (98-107) Carbon Dioxide Level 30 mmol/L (21-32) Anion Gap 8 (6-14) Blood Urea Nitrogen 9 mg/dL (8-26) Creatinine 0.9 mg/dL (0.7-1.3) Estimated GFR (Cockcroft-Gault) 119.9 Glucose Level 107 mg/dL (70-99) Calcium Level 8.6 mg/dL (8.5-10.1) Brief Hospital Course Mr. Vega is a 31 old male admitted for appy, was ruptured, had wbc on admit , Being dcd on PO antibitic and pain med,. GS wishes to dc. 2 visists today. ff up GS as insructed Pt seen and exmained Discharge Information Condition at Discharge: Improved, Stable Follow Up: Weeks (GS 1-2 weeks) Disposition/Orders: D/C to Home No Active Prescriptions or Reported Meds SHERRY BELTRAN MD Jan 14, 2017 14:44
[2017-01-14] MEDS ORDERED: SENN1TAB70 PO (14:59)
[2017-01-14] MEDS ORDERED: OXYC-327 PO (15:00)
[2017-01-14] MEDS ORDERED: AMOX1TAB61 PO (15:00)
[2017-01-14 15:12] VITALS: BP 103/60
--- NOTE | 2017-01-14 16:08 | PDOC4 ---
Operative Note Operative Note Date of Surgery: January 13, 2017 Preoperative Diagnosis: Acute appendicitis Postop Diagnosis: Same with perforation Procedure: Laparoscopic appendectomy Indications: Anselmo is a 31-year-old who presented with right lower quadrant abdominal pain and fever. CT consistent with acute appendicitis. He is brought for laparoscopic appendectomy Operative Findings: The proximal appendix was viable. An area of necrosis in mid appendix was the source of an abscess. The distal appendix was enlarged but intact. No other obvious abnormalities seen laparoscopically. Operative Report: After obtaining informed consent the patient was brought to the operating suite and given a general endotracheal anesthetic. Multani catheter placed to dependent drainage. Abdomen was prepped and draped in usual sterile fashion An infraumbilical Incision was infiltrated with local anesthetic and incised. A 5 mm Visiport was used to gain access into the abdominal cavity taking care to avoid injury to abdominal contents. Pneumoperitoneum established camera inserted inspection carried out with results as noted above With the table in Trendelenburg rolled the left the suprapubic and left lower quadrant ports were placed under direct vision. Umbilical port converted to 12 mm for instrumentation. The appendix was gently mobilized from surrounding structures using the suction flavor maker.. A rent was created at the base of the appendix to allow passage of the Endo REGINO stapler. A tissue load was used to amputate the base the appendix. Medium large ligaclips were used to augment hemostasis along the staple line. A vascular load was used to control the mesoappendix. Appendix placed in an Endo Catch bag. Intra-abdominal pressure decreased to 6 cm water. No bleeding from the appendiceal stump or the mesial appendix was seen. Right sided incision was infiltrated with local anesthetic, incised, and a 19 [place] round Saran drain delivered through the umbilical port was brought out the right sided stab wound. Sewn to the skin with a silk stitch. Draining left in the right paracolic gutter and true pelvis. Table return to level appendix delivered through the umbilical incision. Umbilical incision closed with interrupted 0 Vicryl suture. Again with intra- abdominal pressure at 6 cm water no bleeding seen from the umbilical closure or from the appendiceal stump or mesoappendix .Left lower quadrant port removed under direct vision no bleeding seen. Abdomen decompressed camera slowly removed no bleeding seen. Incisions closed with skin shlomo. Sterile dressings applied. Multani catheter removed. Patient awakened from the anesthetic and taken to the recovery room in satisfactory condition. MANDI BOONE MD Jan 14, 2017 16:08
--- NOTE | 2017-01-17 13:47 | PATHOLOGY ---
PATHOLOGY REPORT * * * * * * * * FINAL DIAGNOSIS: Appendix, laparoscopic appendectomy: - Acute suppurative and hemorrhagic appendicitis. COMMENT: There is no evidence of malignancy. (JPM:mml; 01/17/2017) REPORT ELECTRONICALLY SIGNED BY: Daniel Osorio M.D. DATE/TIME: 01/17/2017 13:46 * * * * * * * * GROSS PATHOLOGY: Received in formalin labeled "Anselmo Vega, appendix," is an appendix measuring 8.5 cm in length and up to 1.1 cm in diameter with a moderate amount of attached mesoappendix. The serosal surface is rangel-bolanos and glistening to shaggy in appearance. Sectioning reveals a pinpoint to patent lumen filled with a slight amount of fecal material admixed with blood coagulum. Glass Washer sections are submitted in cassette A1 and A2, with the proximal margin and bisected tip submitted in cassette A1. (CAA; 01/14/2017) INITIAL CPT CODE(S): 53964 Professional services performed [place] [address] Technical services performed by [facility] at [address] [place] [address]. SPECIMEN(S) RECEIVED: A.Appendix CLINICAL HISTORY: Appendicitis PATIENT: ANSELMO VEGA /AGE: 1106/08/1985 (Age: 31) PATIENT #: [id number] ALT CASE #: SPECIMEN COLLECTION DATE: 01/13/2017 SPECIMEN RECEIVED DATE: 01/13/2017 [facility] - [address] [place] [address] - PHONE: [phone] * * * END OF REPORT * * *
== END 2017-01-14 16:10 | disposition home or self-care (01) | DRG 339 ==
LOC: 4 NORTH 03:42
PROVIDERS: ADMIT Internal Medicine; ATTEND Internal Medicine
PROC: 0DTJ4ZZ Resection of Appendix, Percutaneous Endoscopic Approach (ICD-10-PCS; principal; 2017-01-13 09:45)
DX: K35.3 Acute appendicitis with localized peritonitis (principal); R65.10 Systemic inflammatory response syndrome (SIRS) of non-infectious origin without acute organ dysfunction; F12.90 Cannabis use, unspecified, uncomplicated; F17.200 Nicotine dependence, unspecified, uncomplicated; K59.00 Constipation, unspecified
CPT/HCPCS: 36415; 80048; 85007; 85027; G0238; J0694; J0780; J1100; J1170; J1650; J2250; J2270; J2405; J2543; J2704; J2710; J3010; J3490; J7030; J7120